=== PATIENT | female | born 1990 | race Two or more races ===

== ENCOUNTER 2017-03-18 18:25 | Emergency (ER) | payer OTHER ==
[2017-03-18] MEDS ORDERED: Ibuprofen TAB* 600 MG PO ONE (20:40)
[2017-03-18 21:20] VITALS: BP 98/76
--- NOTE | 2017-03-19 08:33 | ED ---
HPI Chest Pain - HPI Summary HPI Summary: Patient presents to the ED with left chest wall pain x 2 hours which has since resolved. She is currently experiencing other cold symptoms. She notes to pain in the misternal chest worse with coughing and better with rest. Denies smoking, travel, OCP use or sedentary lifestyle. Denies calf pain. She denies any cardiac history and this has never happened before. She states after coughing she experiences a achy feeling in the midsternal chest which does not radiate. The pain is 2/10 and since resolved. Not worse with exertion or better with rest. She is otherwise healthy. This has never happened before. Denies trauma or exertion. She has not taken anything for relief. No family history of cardiac problems. - History of Current Complaint Chief Complaint: EDChestWallPain Time Seen by Provider: 03/18/17 18:49 Hx Obtained From: Patient Onset/Duration: Started Hours Ago Timing: Intermittent, Lasting Hours Initial Severity: Mild Current Severity: None Pain Intensity: 1 Pain Scale Used: 0-10 Numeric Chest Pain Location: Discrete at:, Mid Sternal Chest Pain Radiates: No Character: Dull/Aching Aggravating Factor(s): Nothing Alleviating Factor(s): Spontaneous Resolution Associated Signs and Symptoms: Positive: Cough, URI - Risk Factors Pulmonary Embolism Risk Factors: Negative TAD Risk Factors: Negative - Allergy/Home Medications Allergies/Adverse Reactions: Allergies Allergy/AdvReac Type Severity Reaction Status Date / Time No Known Allergies Allergy Verified 03/18/17 21:02 PMH/Surg Hx/FS Hx/Imm Hx Previously Healthy: Yes - Immunization History Hx Pertussis Vaccination: No Immunizations Up to Date: Unable to Obtain/Confirm Infectious Disease History: No Infectious Disease History: Denies: Traveled Outside the [place] in Last 30 Days - Social History Occupation: Employed Part-time Lives: With Family Alcohol Use: None Hx Substance Use: No Substance Use Type: Reports: None Hx Tobacco Use: No Smoking Status (MU): Never Smoked Tobacco Review of Systems Constitutional: Negative Eyes: Negative Positive: Chest Pain Positive: Cough Gastrointestinal: Negative Positive: no symptoms reported, see HPI Musculoskeletal: Negative Neurological: Negative All Other Systems Reviewed And Are Negative: Yes Physical Exam Triage Information Reviewed: Yes Vital Signs On Initial Exam: Initial Vitals Temp Pulse Resp BP Pulse Ox 99.1 F 81 20 119/92 99 03/18/17 18:36 03/18/17 18:36 03/18/17 18:36 03/18/17 18:36 03/18/17 18:36 Vital Signs Reviewed: Yes Appearance: Positive: Well-Appearing, Well-Nourished Skin: Positive: Warm, Skin Color Reflects Adequate Perfusion Head/Face: Positive: Normal Head/Face Inspection Eyes: Positive: EOMI, MATTY, Conjunctiva Clear Neck: Positive: Supple, No Lymphadenopathy Respiratory/Lung Sounds: Positive: Clear to Auscultation, Breath Sounds Present Cardiovascular: Positive: Normal, RRR, Pulses are Symmetrical in both Upper and Lower Extremities Musculoskeletal: Positive: Normal, Strength/ROM Intact Psychiatric: Positive: Normal - [place] Coma Scale Coma Scale Total: 15 Diagnostics - Vital Signs Vital Signs Temp Pulse Resp BP Pulse Ox 03/18/17 21:19 97.8 F 98 17 98/76 03/18/17 18:36 99.1 F 81 20 119/92 99 - Laboratory Lab Results: Lab Results 03/18/17 Range/Units 19:38 D-Dimer, Quantitative < 200 (Less Than 230) ng/mL Lab Statement: Any lab studies that have been ordered have been reviewed, and results considered in the medical decision making process. Chest Pain Course/Dx - Course Course Of Treatment: Patient is evaluated for mid sternal chest pain. Pain has since resolved. She is low risk for PE, however EKG and D-dimer were performed - both which were negative. She states the pain lasted 2 hours and worse with cough. Discussed treatment options. Likely costochondritis d/t presesentation. On physical exam, the pain is not reproducible. Discussed plan and patient agrees to have strict return precautions with worsening SOB, chest pain or other symptoms. She agrees. - Chest Pain Differential Diagnosis/HQI/PQRI: Chest Wall, Lower Respiratory Infection, Pulmonary Embolism - Diagnoses Provider Diagnoses: Chest wall pain Discharge - Discharge Plan Condition: Stable Disposition: HOME Patient Education Materials: Costochondritis (ED) Referrals: [facility] - Mann JACOBSON [Primary Care Provider] - Additional Instructions: If any symptoms become worse, return to the ED immediately It is likely you have what is called costochondritis, which is an inflammation of the chest wall from coughing Take ibuprofen 600mg three times daily until symptoms resolve If you develop SOB or worsening pain - return to the ED
== END 2017-03-18 21:30 | disposition home or self-care (01) ==
LOC: ED 18:25
DX: J06.9 Acute upper respiratory infection, unspecified (principal); R07.89 Other chest pain; R05 Cough
CPT/HCPCS: 36415; 85379; 93005; 99281; A9270-GY